=== PATIENT | male | born 1970 | race American Indian/Alaskan Native ===

== ENCOUNTER 2018-12-21 10:28 | Outpatient (CLI) | payer BC ==
--- NOTE | 2018-12-21 11:41 | XRay Report ---
PA and lateral chest: Cough. Sternotomy wires are present and there has been replacement of the mitral valve. The heart is normal in size and contour. There does appear to be very mild redistribution of flow to the upper lobes. No perivascular edema and no effusion noted. There mild increased interstitial markings at both lung bases. No evidence of infiltrate or consolidation. No nodule. No prior exam for comparison. Impression: Mild redistribution of blood flow raising suspicion of slight pulmonary vascular congestion. No evidence of pneumonia appreciated.
== END 2018-12-21 10:29 | disposition home or self-care (01) ==
LOC: SPVIMAG 10:28
DX: R05 Cough (principal)
CPT/HCPCS: 71046